=== PATIENT | female | born 1995 | race African-American/Black ===

== ENCOUNTER 2019-06-14 01:57 | Emergency (ER) | payer MEDICAID ==
[~2019-06-14] VITALS: Ht 165.1 cm; Wt 65.8 kg
[2019-06-14 02:01] VITALS: BP 120/64
--- NOTE | 2019-06-14 02:01 | NUR ---
PT TAKEN TO BED 3
--- NOTE | 2019-06-14 02:08 | NUR ---
PATIENT PRESENTS TO ED WITH ABD PAIN FOR A WEEK, 5 WEEKS PERGNANT. DENIES N/V/D; SKIN IS PINK/WARM/DRY; AAOX4 WITH EVEN AND STEADY GAIT; LUNGS CLEAR BL; HR EVEN AND REGULAR; PT DENIES ANY FEVER, CP, SOB, OR COUGH AT THIS TIME; PATIENT STATES PAIN OF 4/10 AT THIS TIME; VSS; PATIENT POSITIONED FOR COMFORT; HOB ELEVATED; BEDRAILS UP X2; BED DOWN. ER MD MADE AWARE OF PT STATUS.
[2019-06-14] MEDS ORDERED: DICYCLOMINE HCL LIQUID 20 MG, ALUMINUM HYD/MAG/SIMETHICONE 30 ML, LIDOCAINE VISCOUS 2% ... PO ONE ×3 (02:25)
--- NOTE | 2019-06-14 02:50 | NUR ---
Patient discharged with v/s stable. Written and verbal after care instructions given and explained. Patient alert, oriented and verbalized understanding of instructions. Ambulatory with steady gait. All questions addressed prior to discharge. ID band removed. Patient advised to follow up with PMD. Rx of ZOFRAN PO given. Patient educated on indication of medication including possible reaction and side effects. Opportunity to ask questions provided and answered.
== END 2019-06-14 02:50 | disposition home or self-care (01) ==
LOC: MED 01:57
DX: O26.891 Other specified pregnancy related conditions, first trimester (principal); R10.13 Epigastric pain; O21.9 Vomiting of pregnancy, unspecified; F12.10 Cannabis abuse, uncomplicated; Z3A.01 Less than 8 weeks gestation of pregnancy
CPT/HCPCS: 81002; 81025; 99283